=== PATIENT | female | born 1985 | race Caucasian/White ===

== ENCOUNTER 2021-03-30 20:58 | Inpatient (IN) ==
[2021-03-30] MEDS ORDERED: 0.9 % Sodium Chloride 1,000 ML IVC ONE ×3 (22:01→23:03)
[2021-03-30] MEDS ORDERED: Prochlorperazine 10 MG/2 ML VIAL IVP ONE (22:02)
[2021-03-30] MEDS ORDERED: *HR* FentaNYL (PF) 100 MCG/2 ML VIAL IVP ONE (22:15)
[2021-03-30 22:46] LABS: Hematocrit 35.1 % (35.3-44.9); Hemoglobin 10.8 g/dL (11.5-15.4); Mean Corpuscular HGB Conc 30.8 g/dL (31.6-35.5); Mean Corpuscular Hemoglobin 25.5 pg (28.0-33.3); Mean Corpuscular Volume 82.8 fL (83.0-100.0); Platelet Count 150 K/mcL (140-400); Red Blood Count 4.24 M/mcL (3.82-4.97); Red Cell Distribution Width 15.8 % (11.5-14.5)
[2021-03-30] MEDS ORDERED: Piperacillin/Tazobactam 3.375 GM in Water for inj. (sterile) 20 ML IVP ONE (22:51)
[2021-03-30 23:11] LABS: Dohle Bodies Present (Not Present); Lymphocytes # 0.8 K/mcL (0.6-4.6); Neutrophils # 17.1 K/mcL (1.6-8.9)
[2021-03-30 23:35] LABS: Alanine Aminotransferase 22 Units/L (7-52); Alkaline Phosphatase 86 Units/L (34-104); Aspartate Amino Transferase 11 Units/L (13-39); BUN/Creatinine Ratio 15 (6-26); Bilirubin,Total 0.8 mg/dL (0.3-1.0); Blood Urea Nitrogen 43 mg/dL (6-20); Calcium 8.5 mg/dL (8.6-10.3); Carbon Dioxide 23 mEq/L (23-29); Chloride 96 mEq/L (98-107); Globulin 3.1 g/dL (2.4-3.5); Glucose 151 mg/dL (70-105); Lipase < 3 Units/L (11-82); Osmolality,Calculated 286 (280-300); Potassium 3.4 mEq/L (3.5-5.1); Sodium 131 mEq/L (136-145); Total Protein 6.1 g/dL (6.4-8.9); eGFR For African Americans 23 (> 60); eGFR For Non-African Americans 19 (> 60)
[2021-03-31] MEDS ORDERED: Isovue-370 500 ML BOTTLE IVP ONE (00:49)
[2021-03-31] MEDS ORDERED: 0.9 % Sodium Chloride 1,000 ML ONE (01:25)
[2021-03-31] MEDS ORDERED: Ringers Solution, Lactated 1,000 ML IVC ONE (01:55)
[2021-03-31] MEDS ORDERED: Nicotine 7 MG PATCH.TD24 TD ONE (02:19)
[2021-03-31] MEDS ORDERED: Naloxone 0.4 MG/ML INJ IVP PRN (04:13)
[2021-03-31] MEDS ORDERED: Acetaminophen IV 1,000 MG/100 ML BAG IVPB ONE (05:30)
[2021-03-31 06:03] LABS: Hematocrit 34.7 % (35.3-44.9); Mean Corpuscular HGB Conc 31.7 g/dL (31.6-35.5); Mean Corpuscular Hemoglobin 26.3 pg (28.0-33.3); Mean Corpuscular Volume 82.8 fL (83.0-100.0); Mean Platelet Volume 12.7 fL (9.4-12.4); Platelet Count 144 K/mcL (140-400); Red Blood Count 4.19 M/mcL (3.82-4.97); Red Cell Distribution Width 15.9 % (11.5-14.5); White Blood Count 12.1 K/mcL (4.3-11.1)
[2021-03-31 06:24] LABS: Calcium 7.5 mg/dL (8.6-10.3); Potassium 3.4 mEq/L (3.5-5.1)
[2021-03-31 06:41] LABS: Lymphocytes # 0.2 K/mcL (0.6-4.6); Neutrophils # 11.4 K/mcL (1.6-8.9); Platelet Estimate Normal (Normal); Toxic Vacuolation Present (Not Present)
[2021-03-31] MEDS: Ringers Solution, Lactated 1,000 ML IVC SCH ×3 (06:49→09:39)
[2021-03-31] MEDS: Norepinephrine 4 MG/254 ML IV.SOLN IVC SCH ×2 (07:02→23:22)
[2021-03-31] MEDS ORDERED: Potassium Chloride 20 MEQ, Lidocaine 1% 2 ML in 0.9 % Sodium Chloride 250 ML IVPB ONE (07:19)
[2021-03-31] MEDS: *HR* OxyCODONE Immed Rel 5 MG TABLET PO PRN ×3 (09:05→18:58)
[2021-03-31] MEDS: Piperacillin/Tazobactam 3.375 GM in 0.9 % Sodium Chloride Mini Bag 100 ML IVPB SCH ×3 (09:32→23:26)
[2021-03-31 10:18] LABS: Amphetamine Screen,Urine Positive ng/mL (Cutoff=1000); Barbiturate Screen,Urine Negative ng/mL (Cutoff=200); Benzodiazepines Screen,Urine Negative ng/mL (Cutoff=200); Cannabinoid Screen,Urine Negative ng/mL (Cutoff = 50); Cocaine Screen,Urine Negative ng/mL (Cutoff= 300); Opiate Screen,Urine Negative ng/mL (Cutoff=300); Phencyclidine Screen,Urine Negative ng/mL (Cutoff=25)
[2021-03-31 10:19] LABS: Bacteria,Urine Few per hpf (None-Few); Bilirubin,Urine Negative (Negative); Blood,Urine Negative (Negative); Clarity,Urine Turbid (Clear); Color,Urine Yellow (Yellow); Glucose,Urine (UA) 30 mg/dL (Normal); Ketones,Urine Negative (Negative); Leukocyte Esterase,Urine Large (Negative); Mucus,Urine Few per lpf (None-Few); Nitrite,Urine Negative (Negative); Protein,Urine 70 mg/dL (Neg-Trace); RBC,Urine 0-3 per hpf (0-3); Specific Gravity,Urine 1.018 (1.010-1.025); Squamous Epithelial Cell,Urine Few per hpf (None-Few); WBC,Urine 50-100 per hpf (0-3)
[2021-03-31 10:58] LABS: Folate 5.1 ng/mL (3.0-16.0)
[2021-03-31 11:09] LABS: Ferritin 113 ng/mL (10-120); Iron < 10 mcg/dL (50-170); Transferrin 192 mg/dL (203-362)
[2021-03-31] MEDS: Acetaminophen 325 MG TABLET PO PRN ×2 (11:59→20:16)
[2021-03-31] MEDS: Nicotine 21 MG PATCH.TD24 TD SCH (15:57)
[2021-03-31] MEDS: *HR* Heparin 5,000 UNIT/ML VIAL SQ SCH (18:58)
[2021-04-01] MEDS: *HR* OxyCODONE Immed Rel 5 MG TABLET PO PRN ×4 (01:03→20:16)
[2021-04-01] MEDS: Acetaminophen 325 MG TABLET PO PRN ×3 (02:39→17:55)
[2021-04-01] MEDS ORDERED: *HR* Buprenorphine HCl 8 MG TAB.SUBL SL SCH (04:00)
[2021-04-01] MEDS: *HR* Heparin 5,000 UNIT/ML VIAL SQ SCH ×2 (04:09→18:05)
[2021-04-01] MEDS ORDERED: *HR* OxyCODONE Immed Rel 5 MG TABLET PO ONE (04:21)
[2021-04-01] MEDS ORDERED: Perflutren Lipid Microsphere 1.3 ML in 0.9 % Sodium Chloride 8.7 ML IVP PRN (07:15)
[2021-04-01] MEDS: Piperacillin/Tazobactam 3.375 GM in 0.9 % Sodium Chloride Mini Bag 100 ML IVPB SCH ×2 (07:55→16:02)
[2021-04-01 08:47] LABS: VBG Ionized Calcium 1.11 mmol/L (1.15-1.35)
[2021-04-01 08:48] LABS: Nucleated Red Blood Cells 0.2 /100 WBC (0)
[2021-04-01 08:50] LABS: Hematocrit 36.1 % (35.3-44.9); Hemoglobin 11.1 g/dL (11.5-15.4); Immature Platelets 14.1 % (1.1-6.1); Mean Corpuscular HGB Conc 30.7 g/dL (31.6-35.5); Mean Corpuscular Hemoglobin 25.3 pg (28.0-33.3); Mean Corpuscular Volume 82.2 fL (83.0-100.0); Mean Platelet Volume 13.1 fL (9.4-12.4); Platelet Count 152 K/mcL (140-400); Red Blood Count 4.39 M/mcL (3.82-4.97); Red Cell Distribution Width 16.2 % (11.5-14.5); White Blood Count 17.8 K/mcL (4.3-11.1)
[2021-04-01 08:56] LABS: INR 1.3; Prothrombin Time 14.6 Seconds (9.4-12.1)
[2021-04-01 08:58] LABS: Activated Partial Thrombo Time 27.9 Seconds (26.0-36.0)
[2021-04-01] MEDS ORDERED: Buprenorphine Hcl/Naloxone 8-2 MG SL SCH (09:00)
[2021-04-01 09:13] LABS: Eosinophils # 0.4 K/mcL (0.0-0.6); Lymphocytes # 1.1 K/mcL (0.6-4.6); Monocytes # 0.7 K/mcL (0.0-1.3); Neutrophils # 15.7 K/mcL (1.6-8.9)
[2021-04-01 09:14] LABS: Anisocytosis 1+ (Not Present); Platelet Estimate Normal (Normal)
[2021-04-01 09:39] LABS: Albumin 2.6 g/dL (3.5-5.7); Albumin/Globulin Ratio 0.8 (1.1-2.2); Bilirubin,Total 1.9 mg/dL (0.3-1.0); Globulin 3.1 g/dL (2.4-3.5); Phosphorous 2.6 mg/dL (2.7-4.5); Potassium 3.3 mEq/L (3.5-5.1); Total Protein 5.7 g/dL (6.4-8.9)
[2021-04-01 12:58] LABS: Uric Acid 6.3 mg/dL (2.3-7.6)
[2021-04-01] MEDS: Nicotine 21 MG PATCH.TD24 TD SCH (16:03)
[2021-04-01] MEDS ORDERED: Naloxone 0.4 MG/ML INJ IVP PRN (16:28)
[2021-04-01] MEDS: Gabapentin 300 MG CAPSULE PO SCH (20:17)
[2021-04-02] MEDS: Piperacillin/Tazobactam 3.375 GM in 0.9 % Sodium Chloride Mini Bag 100 ML IVPB SCH ×2 (02:10→08:09)
[2021-04-02] MEDS: Acetaminophen 325 MG TABLET PO PRN ×2 (02:16→08:14)
[2021-04-02] MEDS: *HR* OxyCODONE Immed Rel 5 MG TABLET PO PRN ×4 (02:17→21:30)
[2021-04-02] MEDS: *HR* Heparin 5,000 UNIT/ML VIAL SQ SCH ×2 (05:48→17:39)
[2021-04-02 07:29] LABS: VBG Ionized Calcium 1.03 mmol/L (1.15-1.35)
[2021-04-02 08:01] LABS: Albumin 2.4 g/dL (3.5-5.7); Albumin/Globulin Ratio 0.9 (1.1-2.2); Globulin 2.8 g/dL (2.4-3.5); Magnesium 2.3 mg/dL (1.6-2.6); Phosphorous 2.8 mg/dL (2.7-4.5); Potassium 2.8 mEq/L (3.5-5.1); Total Protein 5.2 g/dL (6.4-8.9)
[2021-04-02] MEDS: FLUoxetine 20 MG CAPSULE PO SCH (08:10)
[2021-04-02] MEDS ORDERED: Potassium Chloride Elixir 20 MEQ/15 ML UDC PO ONE (08:21)
[2021-04-02] MEDS ORDERED: Calcium Gluconate 1gm/50mL 1 GM/50 ML BAG IVPB ONE (08:26)
[2021-04-02 10:04] LABS: Bilirubin,Direct 1.6 mg/dL (0.0-0.2); Bilirubin,Indirect 0.5 mg/dL (0.0-1.0); Bilirubin,Total 2.1 mg/dL (0.3-1.0)
[2021-04-02] MEDS ORDERED: Ondansetron ODT 4 MG TAB.RAPDIS SL PRN (10:13)
[2021-04-02 11:29] LABS: Hematocrit 33.1 % (35.3-44.9); Hemoglobin 10.2 g/dL (11.5-15.4); Mean Corpuscular HGB Conc 30.8 g/dL (31.6-35.5); Mean Corpuscular Hemoglobin 25.2 pg (28.0-33.3); Mean Corpuscular Volume 81.9 fL (83.0-100.0); Mean Platelet Volume 12.4 fL (9.4-12.4); Platelet Count 129 K/mcL (140-400); Red Blood Count 4.04 M/mcL (3.82-4.97); Red Cell Distribution Width 16.5 % (11.5-14.5); White Blood Count 16.9 K/mcL (4.3-11.1)
[2021-04-02 11:55] LABS: Monocytes # 0.7 K/mcL (0.0-1.3); Neutrophils # 15.2 K/mcL (1.6-8.9); Platelet Estimate Slight Decrease (Normal)
[2021-04-02] MEDS: Nicotine 21 MG PATCH.TD24 TD SCH (14:31)
[2021-04-02] MEDS: Penicillin G Potassium 4,000,000 UNIT in 0.9 % Sodium Chloride 100 ML IVPB SCH ×2 (17:25→21:29)
[2021-04-02] MEDS: Clindamycin 600 MG/50 ML 600 MG/50 ML IV.SOLN IVPB SCH (17:39)
[2021-04-02] MEDS: Gabapentin 300 MG CAPSULE PO SCH (21:29)
[2021-04-02] MEDS ORDERED: Potassium Chloride 40 MEQ, Lidocaine 1% 2 ML in 0.9 % Sodium Chloride 500 ML IVPB ONE (22:00)
[2021-04-03] MEDS: Clindamycin 600 MG/50 ML 600 MG/50 ML IV.SOLN IVPB SCH ×3 (01:00→15:48)
[2021-04-03] MEDS: Penicillin G Potassium 4,000,000 UNIT in 0.9 % Sodium Chloride 100 ML IVPB SCH ×6 (01:00→20:57)
[2021-04-03] MEDS: Acetaminophen 325 MG TABLET PO PRN (01:54)
[2021-04-03 02:17] LABS: Hematocrit 31.5 % (35.3-44.9); Mean Corpuscular HGB Conc 31.7 g/dL (31.6-35.5); Mean Corpuscular Hemoglobin 25.4 pg (28.0-33.3); Mean Corpuscular Volume 79.9 fL (83.0-100.0); Platelet Count 131 K/mcL (140-400); Red Blood Count 3.94 M/mcL (3.82-4.97); Red Cell Distribution Width 16.5 % (11.5-14.5); White Blood Count 22.8 K/mcL (4.3-11.1)
[2021-04-03 02:43] LABS: BUN/Creatinine Ratio 21 (6-26); Bilirubin,Direct 1.3 mg/dL (0.0-0.2); Bilirubin,Total 2.2 mg/dL (0.3-1.0); Blood Urea Nitrogen 25 mg/dL (6-20); Calcium 8.4 mg/dL (8.6-10.3); Carbon Dioxide 19 mEq/L (23-29); Chloride 106 mEq/L (98-107); Glucose 137 mg/dL (70-105); Osmolality,Calculated 291 (280-300); Sodium 137 mEq/L (136-145); eGFR For African Americans > 60 (> 60); eGFR For Non-African Americans 52 (> 60)
[2021-04-03] MEDS: *HR* OxyCODONE Immed Rel 5 MG TABLET PO PRN ×4 (03:41→22:33)
[2021-04-03] MEDS: Lactobacillus 1 EACH CAP.SPRINK PO SCH ×3 (03:51→20:59)
[2021-04-03] MEDS: *HR* Heparin 5,000 UNIT/ML VIAL SQ SCH ×2 (06:58→18:20)
[2021-04-03] MEDS: FLUoxetine 20 MG CAPSULE PO SCH (09:47)
[2021-04-03] MEDS ORDERED: DAPTOmycin 500 MG in 0.9 % Sodium Chloride 100 ML IVPB SCH (12:00)
[2021-04-03] MEDS: Vancomycin 1,750 MG/517.5 ML IV.SOLN IVPB SCH (13:44)
[2021-04-03] MEDS: Nicotine 21 MG PATCH.TD24 TD SCH (14:49)
[2021-04-03] MEDS: Famotidine 20 MG TABLET PO SCH (18:39)
[2021-04-03] MEDS ORDERED: Acetaminophen IV 1,000 MG/100 ML BAG IVPB ONE (18:41)
[2021-04-03] MEDS: Gabapentin 300 MG CAPSULE PO SCH (20:59)
[2021-04-04] MEDS: Penicillin G Potassium 4,000,000 UNIT in 0.9 % Sodium Chloride 100 ML IVPB SCH ×3 (01:00→09:45)
[2021-04-04] MEDS: Clindamycin 600 MG/50 ML 600 MG/50 ML IV.SOLN IVPB SCH ×2 (01:00→09:46)
[2021-04-04] MEDS: Vancomycin 1,750 MG/517.5 ML IV.SOLN IVPB SCH (02:00)
[2021-04-04 02:51] LABS: Hematocrit 28.3 % (35.3-44.9); Hemoglobin 8.8 g/dL (11.5-15.4); Mean Corpuscular HGB Conc 31.1 g/dL (31.6-35.5); Mean Corpuscular Hemoglobin 25.2 pg (28.0-33.3); Mean Corpuscular Volume 81.1 fL (83.0-100.0); Mean Platelet Volume 12.9 fL (9.4-12.4); Platelet Count 156 K/mcL (140-400); Red Blood Count 3.49 M/mcL (3.82-4.97); Red Cell Distribution Width 16.5 % (11.5-14.5); White Blood Count 15.1 K/mcL (4.3-11.1)
[2021-04-04 03:04] LABS: Alanine Aminotransferase 11 Units/L (7-52); Albumin 2.1 g/dL (3.5-5.7); Albumin/Globulin Ratio 0.7 (1.1-2.2); Alkaline Phosphatase 201 Units/L (34-104); Aspartate Amino Transferase 11 Units/L (13-39); BUN/Creatinine Ratio 14 (6-26); Bilirubin,Total 1.2 mg/dL (0.3-1.0); Blood Urea Nitrogen 16 mg/dL (6-20); Calcium 7.8 mg/dL (8.6-10.3); Carbon Dioxide 27 mEq/L (23-29); Chloride 104 mEq/L (98-107); Globulin 3.1 g/dL (2.4-3.5); Glucose 113 mg/dL (70-105); Osmolality,Calculated 288 (280-300); Potassium 2.6 mEq/L (3.5-5.1); Sodium 138 mEq/L (136-145); Total Protein 5.2 g/dL (6.4-8.9); eGFR For African Americans > 60 (> 60); eGFR For Non-African Americans 56 (> 60)
[2021-04-04] MEDS ORDERED: Potassium Chloride Elixir 20 MEQ/15 ML UDC PO ONE (03:54)
[2021-04-04] MEDS: *HR* OxyCODONE Immed Rel 5 MG TABLET PO PRN (04:44)
[2021-04-04] MEDS: *HR* Heparin 5,000 UNIT/ML VIAL SQ SCH (04:48)
[2021-04-04] MEDS ORDERED: *HR* Buprenorphine HCl 8 MG TAB.SUBL SL SCH (09:30)
[2021-04-04] MEDS: Lactobacillus 1 EACH CAP.SPRINK PO SCH (09:46)
[2021-04-04] MEDS: FLUoxetine 20 MG CAPSULE PO SCH (09:46)
[2021-04-04] MEDS: Famotidine 20 MG TABLET PO SCH (09:47)
[2021-04-04] MEDS: Acetaminophen 325 MG TABLET PO PRN (10:06)
[2021-04-04 11:07] VITALS: BP 142/92
[2021-04-04] MEDS ORDERED: Ondansetron 4 MG/2 ML VIAL IVP ONE (11:19)
[2021-04-04] MEDS ORDERED: cloNIDine HCL 0.1 MG TABLET PO ONE (11:19)
== END 2021-04-04 12:00 | disposition left against medical advice (07) | DRG 720 ==
LOC: 2NNU 20:58 → EMEROOARM 20:58 → 2NNU 03-31 05:15 → ICNU 03-31 08:04 → SUATTDRO 03-31 08:14 → 2NNU 04-01 18:38
PROVIDERS: ADMIT Student in an Organized Health Care Education/Training Program; ATTEND Internal Medicine